=== PATIENT | female | born 1970 | race African-American/Black ===

== ENCOUNTER 2017-04-08 09:52 | Emergency (ER) | payer OTHER ==
[~2017-04-08] VITALS: Ht 175.3 cm; Wt 115.2 kg
[2017-04-08 10:04] VITALS: BP 148/82
--- NOTE | 2017-04-08 10:16 | NUR ---
Patient ambulated to bed 05.
--- NOTE | 2017-04-08 10:18 | NUR ---
XRAY at bedside. RT at bedside to give patient breathing treatment.
--- NOTE | 2017-04-08 10:20 | NUR ---
PATIENT PRESENTS TO ED WITH C/O DRY COUGH X3 WEEKS----DX BRONCHITIS RX AUGMENTIN, ALBUTEROL X 2 WKS AGO IN [place] CONTINUE COUGHING AND NOW WITH ANTERIOR CHEST WALL PAIN AND HEADACHE NO N/V/----LOOSE STOOL TODAY HX----LYMPHEDEMA LUBritni, L MASSECTOMY W LYMPH, 6YRS REMISSION RX-----CLARITIN, FLUTICANOSE NASAL SPRAY, OMEPRAZOLE, LUVOX; DENIES N/V/D; SKIN IS PINK/WARM/DRY; AAOX4 WITH EVEN AND STEADY GAIT; LUNGS CLEAR BL; HR EVEN AND REGULAR; PT DENIES ANY FEVER OR CP AT THIS TIME; PATIENT STATES PAIN OF 0/10 AT THIS TIME; VSS; PATIENT POSITIONED FOR COMFORT; HOB ELEVATED; BEDRAILS UP X2; BED DOWN. ER MD MADE AWARE OF PT STATUS.
[2017-04-08] MEDS: IPRATROPIUM 0.02% 0.5 MG/2.5 ML NEBU INH ONE ×2 (10:28→11:03)
[2017-04-08] MEDS: ALBUTEROL 0.083% 2.5 MG/3 ML NEBU INH ONE ×2 (10:28→11:04)
[2017-04-08] MEDS: methylPREDNISolone SS 125 MG/2 ML VIAL IVP ONE (10:41)
[2017-04-08 10:45] LABS: BASOPHILS # (AUTO) 0.3 K/uL (0.00-0.22); BASOPHILS % (AUTO) 3.8 % (0.0-2.0); EOSINOPHILS # (AUTO) 0.5 K/uL (0-0.4); EOSINOPHILS % (AUTO) 6.6 % (0.0-4.0); HEMOGLOBIN 13.3 g/dL (12.0-16.0); LYMPHOCYTES % (AUTO) 25.2 % (20.5-51.1); MEAN CORPUSCULAR HEMOGLOBIN 30 pg (27-31); MEAN CORPUSCULAR HGB CONC 33 g/dL (33-37); MEAN CORPUSCULAR VOLUME 90 fL (80-94); MONOCYTES # (AUTO) 0.4 K/uL (0.8-1.0); NEUTROPHILS # (AUTO) 4.6 K/uL (1.8-7.7); NEUTROPHILS % (AUTO) 59.4 % (42.2-75.2); PLATELET COUNT (AUTO) 193 K/uL (140-450); RED BLOOD CELL COUNT(AUTO) 4.45 MIL/uL (4.20-5.40); RED CELL DISTRIBUTION WIDTH 15.1 % (11.6-13.7); WHITE BLOOD COUNT (AUTO) 7.8 K/uL (4.8-10.8)
[2017-04-08 10:54] LABS: ANION GAP 14.3 (8-16); CALCIUM 8.9 mg/dL (8.5-10.1); CARBON DIOXIDE 26.9 mmol/L (21-32); POTASSIUM 4.2 mmol/L (3.5-5.1)
[2017-04-08 10:55] LABS: CREATININE 0.9 mg/dL (0.6-1.3)
--- NOTE | 2017-04-08 10:58 | NUR ---
PEAK FLOW DONE PER DR LEORA'S ORDERS. PRE HHN IT IS 180. AFTER HHN TX 270. WILL CONTINUE TO MONITOR.
--- NOTE | 2017-04-08 11:00 | NUR ---
JACOB ALEX AT BEDSIDE GIVING [place] TX VIA MASK, EDUCATED THE PT WITH PROPER USE OF INHALER PROAIR AND THE USE OF PEAKFLOW
[2017-04-08 11:04] LABS: TOTAL BILIRUBIN 0.3 mg/dL (0.0-1.0)
[2017-04-08 11:05] LABS: ALBUMIN 3.5 g/dL (3.4-5.0)
--- NOTE | 2017-04-08 11:08 | NUR ---
SPO2 100% ON ROOM AIR POST 1ST [place] TX
[2017-04-08 11:18] LABS: INR 1.1 (0.8-1.2); PARTIAL THROMBOPLASTIN TIME 27.5 secs (22-35.6)
--- NOTE | 2017-04-08 11:33 | NUR ---
PEAK FLOW AFTER SECOND HHN IS 340.
[2017-04-08 11:50] VITALS: BP 149/82
--- NOTE | 2017-04-08 11:50 | NUR ---
Patient discharged with v/s stable. Written and verbal after care instructions given and explained. Patient alert, oriented and verbalized understanding of instructions. Ambulatory with steady gait. All questions addressed prior to discharge. ID band removed. Patient advised to follow up with PMD. Rx of TYLENOL, ALBUTEROL 90MCG, PREDNISONE given. Patient educated on indication of medication including possible reaction and side effects. Opportunity to ask questions provided and answered.
== END 2017-04-08 11:50 | disposition home or self-care (01) ==
LOC: MED 10:09
DX: J20.9 Acute bronchitis, unspecified (principal); J45.909 Unspecified asthma, uncomplicated; R03.0 Elevated blood-pressure reading, without diagnosis of hypertension; Z85.9 Personal history of malignant neoplasm, unspecified
CPT/HCPCS: 36415; 71010; 80053; 81002; 81025; 82553; 83880; 84484; 85025; 85379; 85610; 85730; 93005; 94640; 96374; 99285; J2930; J7030; J7613; J7644; Q0092